=== PATIENT | female | born 1955 | race Caucasian/White ===

== ENCOUNTER 2020-06-28 00:41 | Emergency (ER) | payer MEDICARE, BC ==
[~2020-06-28] VITALS: Ht 162.6 cm; Wt 45.0 kg
[~2020-06-28 00:41] MED LIST: ACID1TAB7 PO; DICY10CA3 PO; MESA250C PO; OMEP-110 PO; PRED20TA PO
--- NOTE | 2020-06-28 01:26 | NUR ---
pt states she was admitted here for 2 weeks for chrons disease and discharged on 06/26 and has had increased pain since then. pt unable to recall medications prescribed but has been taking them daily. placed on monitors, awaiting erp eval
[2020-06-28] MEDS ORDERED: MORPHINE SULFATE 4 MG/ML, 1ML IVPush ONE ×2 (02:00→04:30)
[2020-06-28] MEDS ORDERED: ONDANSETRON 2MG/ML, 2ML IVPush ONE ×2 (02:00→04:30)
[2020-06-28] MEDS ORDERED: ONDANSETRON 2MG/ML, 2ML ONE ×2 (02:10→04:18)
[2020-06-28] MEDS ORDERED: MORPHINE SULFATE 4 MG/ML, 1ML ONE ×2 (02:10→04:18)
[2020-06-28 02:30] LABS: BASOPHILS % (AUTO) 1 % (0-1); EOSINOPHILS % (AUTO) 0 % (1-7); LYMPHOCYTES % (AUTO) 6 % (22-44); MEAN CORPUSCULAR HEMOGLOBIN 34.5 pg (27.0-34.8); MEAN CORPUSCULAR HGB CONC 34.7 g/dL (32.4-35.8); MEAN PLATELET VOLUME 7.3 fL (7.4-10.4); MONOCYTES % (AUTO) 4 % (2-9); NEUTROPHILS % (AUTO) 89 % (42-75); PLATELET COUNT 531 x10^3/uL (130-400); RED BLOOD COUNT 4.67 x10^6/uL (3.82-5.3); RED CELL DISTRIBUTION WIDTH 12.5 % (9.6-15.2)
[2020-06-28] MEDS ORDERED: SODIUM CHLORIDE 0.9% 1,000ML IVBOLUS ONE (02:30)
[2020-06-28] MEDS ORDERED: SODIUM CHLORIDE FLUSH 10ML SYR IVF ONE (02:30)
[2020-06-28 02:40] LABS: CALCIUM 9.5 mg/dL (8.5-10.1); CREATININE 1.09 mg/dL (0.55-1.02)
[2020-06-28 02:41] LABS: ALANINE AMINOTRANSFERASE 44 U/L (12-78); ALBUMIN 3.1 g/dL (3.4-5.0)
[2020-06-28 02:43] LABS: ALKALINE PHOSPHATASE 134 U/L (45-117); BILIRUBIN,TOTAL 0.8 mg/dL (0.2-1.0)
--- NOTE | 2020-06-28 02:43 | NUR ---
LABS DRAWN, PT MEDICATED FOR PAIN PER EMAR, PT JUST URINATED, UNABLE TO PROVIDE SAMPLE AT THIS TIME, IVF RUNNING, WILL REASSESS
[2020-06-28 02:50] LABS: ANION GAP 12 mmol/L (5-15); CHLORIDE 96 mmol/L (98-107)
[2020-06-28 02:58] LABS: MD SCAN
--- NOTE | 2020-06-28 03:02 | NUR ---
PT TO CT
[2020-06-28] MEDS ORDERED: OMNIPAQUE 350 MG/ML, 100ML BOTTLE ONE (03:18)
[2020-06-28 03:41] LABS: MICROSCOPIC INDICATED
[2020-06-28 04:25] VITALS: BP 103/56
== END 2020-06-28 04:55 | disposition home or self-care (01) ==
LOC: ED 04:30
DX: D72.829 Elevated white blood cell count, unspecified (principal); R10.84 Generalized abdominal pain; R11.2 Nausea with vomiting, unspecified
CPT/HCPCS: 36415; 74177; 80053; 81001; 83690; 85025; 96361; 96374; 96375; 96376; 99285; J2270; J2405; J7030; Q9967

== ENCOUNTER 2020-08-28 10:11 | Inpatient (IN) | payer MEDICARE, BC ==
[~2020-08-28] VITALS: Ht 162.6 cm; Wt 41.2 kg
[2020-08-28] MEDS ORDERED: ONDANSETRON 2MG/ML, 2ML IVPush ONE (10:30)
[2020-08-28] MEDS ORDERED: SODIUM CHLORIDE FLUSH 10ML SYR IVF ONE (10:30)
[2020-08-28] MEDS ORDERED: SODIUM CHLORIDE 0.9% 1,000ML IVBOLUS ONE (10:30)
[2020-08-28] MEDS ORDERED: MORPHINE SULFATE 4 MG/ML, 1ML ONE ×2 (10:38→11:26)
[2020-08-28] MEDS ORDERED: ONDANSETRON 2MG/ML, 2ML ONE (10:38)
[2020-08-28] MEDS: MORPHINE SULFATE 4 MG/ML, 1ML IVPush PRN ×2 (10:42→11:44)
[2020-08-28 10:52] LABS: MEAN CORPUSCULAR HEMOGLOBIN 31.1 pg (27.0-34.8); MEAN CORPUSCULAR HGB CONC 33.5 g/dL (32.4-35.8); MEAN PLATELET VOLUME 7.1 fL (7.4-10.4); PLATELET COUNT 496 x10^3/uL (130-400); RED BLOOD COUNT 5.01 x10^6/uL (3.82-5.3); RED CELL DISTRIBUTION WIDTH 13.6 % (9.6-15.2)
[2020-08-28 11:02] LABS: ANION GAP 9 mmol/L (5-15); CALCIUM 8.7 mg/dL (8.5-10.1); CHLORIDE 103 mmol/L (98-107)
[2020-08-28 11:06] LABS: ALANINE AMINOTRANSFERASE 13 U/L (12-78); ALKALINE PHOSPHATASE 73 U/L (45-117); BILIRUBIN,TOTAL 0.7 mg/dL (0.2-1.0); CREATININE 0.93 mg/dL (0.55-1.02); TOTAL PROTEIN 6.2 g/dL (6.4-8.2)
--- NOTE | 2020-08-28 11:27 | NUR ---
PT TO CT
[2020-08-28 11:36] LABS: <PLATELET ESTIMATE> INCREASED; <PLT MORPHOLOGY> NORMAL PLT MORPH; <RBC MORPHOLOGY> NORMAL; BANDS%(MANUAL) 5 % (0-7); LYMPHS% (MANUAL) 35 % (22-44); MONOS#(MANUAL) 0.24 x10^3/uL (0.3-2.7); MONOS% (MANUAL) 4 % (2-9); REACTIVE LYMPHS # (MANUAL) 0.42 x10^3/uL (0-0); REACTIVE LYMPHS % (MANUAL) 7 % (0-0); SEG#(MANUAL) 2.94 x10^3/uL (1.8-6.8); SEGS% (MANUAL) 49 % (42-75)
[2020-08-28] MEDS ORDERED: OMNIPAQUE 350 MG/ML, 100ML BOTTLE ONE (11:39)
[2020-08-28 11:40] LABS: MICROSCOPIC INDICATED
--- NOTE | 2020-08-28 11:44 | NUR ---
PT BACK FROM CT. ALL MONITORS IN PLACE. AT BS. CALL LIGHT WITHIN REACH. NADN/VSS
[2020-08-28] MEDS ORDERED: POTASSIUM CHLORIDE 40 MEQ in SODIUM CHLORIDE 0.9% 500 ML IV ONE (12:30)
[2020-08-28] MEDS ORDERED: CEFTRIAXONE 1,000 MG in DEXTROSE 5% 50 ML IVPB ONE (12:30)
--- NOTE | 2020-08-28 13:12 | NUR ---
REPORT GIVEN TO ANAND TEMPLE.
[2020-08-28 13:30] LABS: FREE T4 (FREE THYROXINE) 1.44 ng/dL (0.76-1.46)
[2020-08-28] MEDS ORDERED: ACETAMINOPHEN 325 MG TABLET PO PRN (14:30)
[2020-08-28] MEDS ORDERED: MAGNESIUM SULFATE PMX 2GM/50ML 50 ML IV ONE (14:30)
[2020-08-28] MEDS ORDERED: LACTATED RINGERS 1,000 ML IV SCH (14:30)
[2020-08-28] MEDS ORDERED: ONDANSETRON ODT 4 MG PO PRN (14:30)
[2020-08-28] MEDS ORDERED: ONDANSETRON 2MG/ML, 2ML IVPush PRN (14:30)
[2020-08-28] MEDS: morphine SULFATE 10 MG/ML, 1ML IVPush PRN ×2 (14:36→15:11)
[2020-08-28] MEDS: HYDROCORTISONE 100 MG INJ. IVPush SCH ×2 (15:24→23:17)
[2020-08-28 15:30] VITALS: BP 108/73
[2020-08-28] MEDS: HYDROcodone/APAP 5/325 TABLET PO PRN ×2 (16:17→16:52)
[2020-08-28] MEDS: NS + 40MEQ KCL 1,000 ML IV SCH (17:15)
[2020-08-28 17:18] VITALS: BP 108/73
[2020-08-28] MEDS ORDERED: PRED20TA PO (18:21)
[2020-08-28] MEDS ORDERED: OMEP40CA8 PO (18:21)
[2020-08-28] MEDS ORDERED: HYOS0.1282 PO (18:21)
[2020-08-28] MEDS: HYDROmorphone 2 MG/ML, 1ML IVPush PRN ×2 (19:19→23:25)
[2020-08-28 20:00] VITALS: BP 101/55
[2020-08-29] MEDS: NS + 40MEQ KCL 1,000 ML IV SCH (01:19)
[2020-08-29 01:51] VITALS: BP 104/60
[2020-08-29] MEDS: OMEPRAZOLE 20 MG CAPSULE.DR PO SCH ×2 (05:39→08:43)
[2020-08-29] MEDS: HYDROmorphone 2 MG/ML, 1ML IVPush PRN ×6 (05:44→19:36)
[2020-08-29 06:28] LABS: ALBUMIN 1.6 g/dL (3.4-5.0); CALCIUM 7.8 mg/dL (8.5-10.1); CHLORIDE 111 mmol/L (98-107)
[2020-08-29 06:35] LABS: BASOPHILS % (AUTO) 0 % (0-1); EOSINOPHILS % (AUTO) 0 % (1-7); LYMPHOCYTES % (AUTO) 21 % (22-44); MEAN CORPUSCULAR HEMOGLOBIN 31.1 pg (27.0-34.8); MEAN CORPUSCULAR HGB CONC 33.5 g/dL (32.4-35.8); MEAN PLATELET VOLUME 7.2 fL (7.4-10.4); MONOCYTES % (AUTO) 4 % (2-9); NEUTROPHILS % (AUTO) 75 % (42-75); PLATELET COUNT 333 x10^3/uL (130-400); RED BLOOD COUNT 4.06 x10^6/uL (3.82-5.3); RED CELL DISTRIBUTION WIDTH 14.1 % (9.6-15.2)
[2020-08-29 06:41] LABS: ALANINE AMINOTRANSFERASE 9 U/L (12-78); ALKALINE PHOSPHATASE 67 U/L (45-117); ANION GAP 7 mmol/L (5-15); BILIRUBIN,TOTAL 0.4 mg/dL (0.2-1.0); PREALBUMIN 9.5 mg/dL (20.0-40.0); TOTAL PROTEIN 5.3 g/dL (6.4-8.2)
[2020-08-29 06:42] LABS: HCT (SEDRATE) 37.6 % (34.6-47.8)
[2020-08-29 06:43] LABS: C-REACTIVE PROTEIN, QUANT > 19.00 mg/dL (0.02-0.49)
[2020-08-29 07:39] VITALS: BP 118/75
[2020-08-29] MEDS: HYDROCORTISONE 100 MG INJ. IVPush SCH ×3 (08:53→23:30)
[2020-08-29] MEDS ORDERED: OMNIPAQUE 350 MG/ML, 100ML BOTTLE ONE (11:27)
[2020-08-29] MEDS ORDERED: CHLORHEXIDINE 15 ML UDC ONE (13:48)
[2020-08-29] MEDS ORDERED: CHLORHEXIDINE 15 ML UDC PO ONE (14:00)
[2020-08-29] MEDS ORDERED: FENTANYL PF 100 MCG/2ML ONE ×2 (14:23→15:36)
[2020-08-29] MEDS ORDERED: CEFAZOLIN 1,000 MG ONE (14:25)
[2020-08-29] MEDS ORDERED: GLYCOPYRROLATE 0.2MG/1ML, 5ML ONE (14:25)
[2020-08-29] MEDS ORDERED: SUCCINYLCHOLINE 20 MG/ML, 10ML ONE (14:25)
[2020-08-29] MEDS ORDERED: ROCURONIUM 10MG/ML,5ML ONE (14:25)
[2020-08-29] MEDS ORDERED: NEOSTIGMINE 1 MG/ML, 10ML ONE (14:25)
[2020-08-29] MEDS ORDERED: PROPOFOL 10 MG/ML, 20ML ONE (14:25)
[2020-08-29] MEDS ORDERED: ONDANSETRON 2MG/ML, 2ML ONE (14:25)
[2020-08-29] MEDS ORDERED: ACETAMINOPHEN 325 MG TABLET PO PRN (15:00)
[2020-08-29] MEDS ORDERED: PROMETHAZINE 25 MG/ML, 1ML IVPush PRN (15:00)
[2020-08-29] MEDS ORDERED: LORazepam 2 MG/ML, 1ML IVPush PRN (15:00)
[2020-08-29] MEDS ORDERED: ONDANSETRON 2MG/ML, 2ML IVPush PRN (15:00)
[2020-08-29] MEDS ORDERED: EPHEDRINE 50 MG/ML, 1ML IM PRN (15:00)
[2020-08-29] MEDS ORDERED: hydrALAzine 20 MG/ML, 1ML IV PRN (15:00)
[2020-08-29] MEDS ORDERED: OXYcodone 5 MG/5 ML ORAL.SOL UDC PO PRN (15:00)
[2020-08-29] MEDS ORDERED: LABETALOL 5MG/ML, 20ML IV PRN (15:00)
[2020-08-29] MEDS ORDERED: METHOCARBAMOL 1,000 MG in DEXTROSE 5% 100 ML IV PRN (15:00)
[2020-08-29] MEDS ORDERED: HYDROmorphone 1 MG/ML, 1ML INJ IVPush PRN (15:00)
[2020-08-29] MEDS: FENTANYL PF 100 MCG/2ML IV PRN ×2 (15:38→15:45)
[2020-08-29] MEDS ORDERED: OXYcodone 5 MG/5 ML ORAL.SOL UDC ONE (15:42)
[2020-08-29 16:00] VITALS: BP 110/75
[2020-08-29] MEDS: D5%-0.45NACL+KCL 20MEQ 1,000 ML IV SCH (16:21)
[2020-08-29 18:25] VITALS: BP 148/62
[2020-08-30 00:14] VITALS: BP 145/75
[2020-08-30] MEDS: D5%-0.45NACL+KCL 20MEQ 1,000 ML IV SCH ×2 (00:24→09:26)
[2020-08-30] MEDS: HYDROmorphone 2 MG/ML, 1ML IVPush PRN ×4 (06:08→20:37)
[2020-08-30 06:12] LABS: CHLORIDE 112 mmol/L (98-107)
[2020-08-30 06:19] LABS: ANION GAP 4 mmol/L (5-15); CALCIUM 7.8 mg/dL (8.5-10.1); CREATININE 0.36 mg/dL (0.55-1.02)
[2020-08-30] MEDS ORDERED: TPN PER PHARMACY MC PRN (07:00)
[2020-08-30 07:22] VITALS: BP 159/79
[2020-08-30] MEDS: methylPREDNISolone SOD SUCC 40 MG/ML IV SCH ×2 (09:26→20:36)
[2020-08-30 12:25] VITALS: BP 153/78
[2020-08-30] MEDS: D5%-0.45% NACL 1,000 ML IV SCH (16:39)
[2020-08-30] MEDS ORDERED: FAT EMUL IV SCH (17:00)
[2020-08-30] MEDS ORDERED: [UNRECOGNIZED DRUG - OTHER] IV SCH (17:00)
[2020-08-30] MEDS ORDERED: DEXTROSE 70% IV SCH (17:00)
[2020-08-30] MEDS ORDERED: FILTER, DISP 1.2 MICRON FOR TPN/PVN IV PRN (17:00)
[2020-08-30] MEDS ORDERED: DEXTROSE 50%, 50ML SYRINGE IVPush PRN (17:00)
[2020-08-30] MEDS ORDERED: AMINO ACID 10% IV SCH (17:00)
[2020-08-30] MEDS ORDERED: DEXTROSE 10% 500 ML IV PRN (17:00)
[2020-08-30] MEDS ORDERED: SMOF TPN IV SCH (17:00)
[2020-08-30 20:00] VITALS: BP 170/84
[2020-08-30] MEDS: INSULIN REGULAR MEDIUM DOSE Q6H X 48HRS SQ-INSULIN SCH (20:37)
[2020-08-31] MEDS: HYDROmorphone 2 MG/ML, 1ML IVPush PRN ×6 (00:51→18:23)
[2020-08-31 01:05] VITALS: BP 159/99
[2020-08-31] MEDS: INSULIN REGULAR MEDIUM DOSE Q6H X 48HRS SQ-INSULIN SCH ×4 (02:59→21:20)
[2020-08-31] MEDS: OMEPRAZOLE 20 MG CAPSULE.DR PO SCH (05:21)
[2020-08-31 06:09] LABS: CHLORIDE 105 mmol/L (98-107)
[2020-08-31 06:13] LABS: BASOPHILS % (AUTO) 0 % (0-1); EOSINOPHILS % (AUTO) 0 % (1-7); LYMPHOCYTES % (AUTO) 24 % (22-44); MEAN CORPUSCULAR HEMOGLOBIN 30.8 pg (27.0-34.8); MEAN CORPUSCULAR HGB CONC 33.2 g/dL (32.4-35.8); MONOCYTES % (AUTO) 11 % (2-9); NEUTROPHILS % (AUTO) 65 % (42-75); PLATELET COUNT 258 x10^3/uL (130-400); RED BLOOD COUNT 3.71 x10^6/uL (3.82-5.3); RED CELL DISTRIBUTION WIDTH 13.6 % (9.6-15.2)
[2020-08-31 06:19] LABS: ALANINE AMINOTRANSFERASE 13 U/L (12-78); ALBUMIN 1.6 g/dL (3.4-5.0); ALKALINE PHOSPHATASE 68 U/L (45-117); ANION GAP 4 mmol/L (5-15); BILIRUBIN,TOTAL 0.3 mg/dL (0.2-1.0); CREATININE 0.42 mg/dL (0.55-1.02); TOTAL PROTEIN 5.1 g/dL (6.4-8.2); TRIGLYCERIDES 104 mg/dL (50-200)
[2020-08-31 07:54] VITALS: BP 163/80
[2020-08-31] MEDS: methylPREDNISolone SOD SUCC 40 MG/ML IV SCH ×2 (08:41→21:08)
[2020-08-31 12:00] VITALS: BP 131/77
[2020-08-31] MEDS ORDERED: [UNRECOGNIZED DRUG - OTHER] IV SCH (17:00)
[2020-08-31] MEDS ORDERED: FAT EMUL IV SCH (17:00)
[2020-08-31] MEDS ORDERED: FILTER, DISP 1.2 MICRON FOR TPN/PVN IV PRN (17:00)
[2020-08-31] MEDS ORDERED: DEXTROSE 70% IV SCH (17:00)
[2020-08-31] MEDS ORDERED: AMINO ACID 10% IV SCH (17:00)
[2020-08-31] MEDS ORDERED: SMOF TPN IV SCH (17:00)
[2020-08-31] MEDS: D5%-0.45% NACL 1,000 ML IV SCH (17:43)
[2020-08-31 19:26] VITALS: BP 147/79
[2020-08-31] MEDS: PANTOPRAZOLE 40 MG IV IVPush SCH (21:07)
[2020-09-01] VITALS: BP 163/82
[2020-09-01] MEDS: INSULIN REGULAR MEDIUM DOSE Q6H X 48HRS SQ-INSULIN SCH ×3 (02:05→15:00)
[2020-09-01] MEDS: HYDROmorphone 2 MG/ML, 1ML IVPush PRN ×6 (02:34→21:36)
[2020-09-01 04:50] LABS: CALCIUM 8.1 mg/dL (8.5-10.1); CHLORIDE 105 mmol/L (98-107)
[2020-09-01 05:08] LABS: ANION GAP 3 mmol/L (5-15)
[2020-09-01 06:48] VITALS: BP 137/82
[2020-09-01] MEDS: methylPREDNISolone SOD SUCC 40 MG/ML IV SCH ×2 (08:51→22:09)
[2020-09-01] MEDS: PANTOPRAZOLE 40 MG IV IVPush SCH ×2 (08:51→22:09)
[2020-09-01 12:29] VITALS: BP 112/74
[2020-09-01 14:15] LABS: MICROSCOPIC NOT IND
[2020-09-01] MEDS: SENNA/DOCUSATE TABLET PO PRN (15:36)
[2020-09-01] MEDS: FILTER, DISP 1.2 MICRON FOR TPN/PVN IV PRN (16:28)
[2020-09-01] MEDS ORDERED: [UNRECOGNIZED DRUG - OTHER] IV SCH (17:00)
[2020-09-01] MEDS ORDERED: AMINO ACID 10% IV SCH (17:00)
[2020-09-01] MEDS ORDERED: FAT EMUL IV SCH (17:00)
[2020-09-01] MEDS ORDERED: DEXTROSE 70% IV SCH (17:00)
[2020-09-01] MEDS ORDERED: SMOF TPN IV SCH (17:00)
[2020-09-01] MEDS: POLYETHYLENE GLYCOL 17 GM PACKET PO PRN (18:04)
[2020-09-01 20:31] VITALS: BP 144/79
[2020-09-01] MEDS: D5%-0.45% NACL 1,000 ML IV SCH (21:41)
[2020-09-01] MEDS: OXYcodone/APAP 5/325MG TABLET PO PRN ×2 (22:46→22:49)
[2020-09-01] MEDS: NICOTINE 21 MG/24 HR PATCH.TD24 TD SCH (22:49)
[2020-09-02] VITALS (7 sets, daily range): BP systolic 121–174; BP diastolic 68–85
[2020-09-02] MEDS: HYDROmorphone 2 MG/ML, 1ML IVPush PRN ×6 (00:42→21:02)
[2020-09-02] MEDS: OXYcodone/APAP 5/325MG TABLET PO PRN ×3 (03:06→17:57)
[2020-09-02 05:27] LABS: ANION GAP 3 mmol/L (5-15); CALCIUM 8.2 mg/dL (8.5-10.1); CHLORIDE 104 mmol/L (98-107); CREATININE 0.46 mg/dL (0.55-1.02)
[2020-09-02] MEDS: methylPREDNISolone SOD SUCC 40 MG/ML IV SCH ×2 (08:55→21:01)
[2020-09-02] MEDS: PANTOPRAZOLE 40 MG IV IVPush SCH ×2 (08:55→21:01)
[2020-09-02] MEDS: INSULIN REGULAR MEDIUM DOSE QDAY SQ-INSULIN SCH (09:15)
[2020-09-02] MEDS: POLYETHYLENE GLYCOL 17 GM PACKET PO PRN (12:30)
[2020-09-02] MEDS: SENNA/DOCUSATE TABLET PO PRN (15:58)
[2020-09-02] MEDS ORDERED: [UNRECOGNIZED DRUG - OTHER] IV SCH (17:00)
[2020-09-02] MEDS ORDERED: DEXTROSE 70% IV SCH (17:00)
[2020-09-02] MEDS ORDERED: AMINO ACID 10% IV SCH (17:00)
[2020-09-02] MEDS ORDERED: FAT EMUL IV SCH (17:00)
[2020-09-02] MEDS ORDERED: SMOF TPN IV SCH (17:00)
[2020-09-02] MEDS: FILTER, DISP 1.2 MICRON FOR TPN/PVN IV PRN (17:38)
[2020-09-02] MEDS: D5%-0.45% NACL 1,000 ML IV SCH (17:49)
[2020-09-02] MEDS: AMLODIPINE 2.5 MG TABLET PO SCH (21:02)
[2020-09-02] MEDS: NICOTINE 21 MG/24 HR PATCH.TD24 TD SCH (22:30)
[2020-09-03 00:22] VITALS: BP 153/72
[2020-09-03] MEDS: HYDROmorphone 2 MG/ML, 1ML IVPush PRN ×3 (05:44→15:23)
[2020-09-03 06:06] LABS: BASOPHILS % (AUTO) 0 % (0-1); EOSINOPHILS % (AUTO) 0 % (1-7); LYMPHOCYTES % (AUTO) 14 % (22-44); MEAN CORPUSCULAR HEMOGLOBIN 30.7 pg (27.0-34.8); MEAN CORPUSCULAR HGB CONC 33.2 g/dL (32.4-35.8); MONOCYTES % (AUTO) 13 % (2-9); NEUTROPHILS % (AUTO) 73 % (42-75); PLATELET COUNT 199 x10^3/uL (130-400); RED BLOOD COUNT 3.43 x10^6/uL (3.82-5.3); RED CELL DISTRIBUTION WIDTH 13.9 % (9.6-15.2)
[2020-09-03 06:08] LABS: HCT (SEDRATE) 30.8 % (34.6-47.8)
[2020-09-03 06:20] LABS: ANION GAP 4 mmol/L (5-15); CALCIUM 8.8 mg/dL (8.5-10.1); CHLORIDE 106 mmol/L (98-107)
[2020-09-03 06:27] LABS: CREATININE 0.43 mg/dL (0.55-1.02)
[2020-09-03 07:36] VITALS: BP 160/87
[2020-09-03] MEDS: AMLODIPINE 2.5 MG TABLET PO SCH ×2 (09:09→21:10)
[2020-09-03] MEDS: methylPREDNISolone SOD SUCC 40 MG/ML IV SCH ×2 (09:10→21:10)
[2020-09-03] MEDS: PANTOPRAZOLE 40 MG IV IVPush SCH ×2 (09:10→21:11)
[2020-09-03] MEDS: OXYcodone/APAP 5/325MG TABLET PO PRN ×2 (09:10→17:48)
[2020-09-03] MEDS: INSULIN REGULAR MEDIUM DOSE QDAY SQ-INSULIN SCH (09:21)
[2020-09-03 12:14] VITALS: BP 168/87
[2020-09-03] MEDS ORDERED: [UNRECOGNIZED DRUG - OTHER] IV SCH (17:00)
[2020-09-03] MEDS ORDERED: SMOF TPN IV SCH ×2 (17:00)
[2020-09-03] MEDS ORDERED: [UNRECOGNIZED DRUG - OTHER] IV SCH (17:00)
[2020-09-03] MEDS ORDERED: AMINO ACID 10% IV SCH ×2 (17:00)
[2020-09-03] MEDS ORDERED: FAT EMUL IV SCH ×2 (17:00)
[2020-09-03] MEDS ORDERED: DEXTROSE 70% IV SCH ×2 (17:00)
[2020-09-03] MEDS: D5%-0.45% NACL 1,000 ML IV SCH (17:58)
[2020-09-03 22:12] VITALS: BP 168/91
[2020-09-03] MEDS: NICOTINE 21 MG/24 HR PATCH.TD24 TD SCH (22:37)
[2020-09-04 00:53] VITALS: BP 142/72
[2020-09-04] MEDS: HYDROmorphone 2 MG/ML, 1ML IVPush PRN ×3 (04:44→20:34)
[2020-09-04 05:53] LABS: CHLORIDE 106 mmol/L (98-107)
[2020-09-04 06:03] LABS: ANION GAP 5 mmol/L (5-15); CALCIUM 8.5 mg/dL (8.5-10.1); CREATININE 0.38 mg/dL (0.55-1.02); PREALBUMIN 21.4 mg/dL (20.0-40.0)
[2020-09-04 06:39] VITALS: BP 147/84
[2020-09-04] MEDS: AMLODIPINE 2.5 MG TABLET PO SCH ×2 (08:08→20:33)
[2020-09-04] MEDS: OXYcodone/APAP 5/325MG TABLET PO PRN ×2 (08:08→16:10)
[2020-09-04] MEDS: methylPREDNISolone SOD SUCC 40 MG/ML IV SCH ×2 (08:08→20:34)
[2020-09-04] MEDS: PANTOPRAZOLE 40 MG IV IVPush SCH ×2 (08:09→20:34)
[2020-09-04] MEDS: INSULIN REGULAR MEDIUM DOSE QDAY SQ-INSULIN SCH (10:16)
[2020-09-04 12:13] VITALS: BP 147/77
[2020-09-04] MEDS: D5%-0.45% NACL 1,000 ML IV SCH (16:13)
[2020-09-04] MEDS ORDERED: AMINO ACID 10% IV SCH (17:00)
[2020-09-04] MEDS ORDERED: FAT EMUL IV SCH (17:00)
[2020-09-04] MEDS ORDERED: SMOF TPN IV SCH (17:00)
[2020-09-04] MEDS ORDERED: [UNRECOGNIZED DRUG - OTHER] IV SCH (17:00)
[2020-09-04] MEDS ORDERED: DEXTROSE 70% IV SCH (17:00)
[2020-09-04 19:12] VITALS: BP 143/71
[2020-09-04] MEDS: NICOTINE 21 MG/24 HR PATCH.TD24 TD SCH (22:47)
[2020-09-05 03:55] VITALS: BP 124/66
[2020-09-05] MEDS: HYDROmorphone 2 MG/ML, 1ML IVPush PRN ×3 (05:34→17:23)
[2020-09-05 05:48] LABS: ANION GAP 3 mmol/L (5-15); CHLORIDE 105 mmol/L (98-107)
[2020-09-05 05:54] LABS: CREATININE 0.38 mg/dL (0.55-1.02); PREALBUMIN 26.1 mg/dL (20.0-40.0)
[2020-09-05 07:51] VITALS: BP 157/80
[2020-09-05] MEDS: AMLODIPINE 2.5 MG TABLET PO SCH ×2 (08:58→20:39)
[2020-09-05] MEDS: PANTOPRAZOLE 40 MG IV IVPush SCH ×2 (08:58→20:38)
[2020-09-05] MEDS: methylPREDNISolone SOD SUCC 40 MG/ML IV SCH ×2 (08:58→20:38)
[2020-09-05] MEDS: INSULIN REGULAR MEDIUM DOSE QDAY SQ-INSULIN SCH (09:00)
[2020-09-05] MEDS: SUCRALFATE 1 GM TABLET PO SCH ×3 (12:01→20:39)
[2020-09-05 12:04] VITALS: BP 136/75
[2020-09-05] MEDS: OXYcodone/APAP 5/325MG TABLET PO PRN (12:13)
[2020-09-05] MEDS ORDERED: FAT EMUL IV SCH (17:00)
[2020-09-05] MEDS ORDERED: [UNRECOGNIZED DRUG - OTHER] IV SCH (17:00)
[2020-09-05] MEDS ORDERED: SMOF TPN IV SCH (17:00)
[2020-09-05] MEDS ORDERED: DEXTROSE 70% IV SCH (17:00)
[2020-09-05] MEDS ORDERED: AMINO ACID 10% IV SCH (17:00)
[2020-09-05] MEDS: FILTER, DISP 1.2 MICRON FOR TPN/PVN IV PRN (17:11)
[2020-09-05] MEDS: D5%-0.45% NACL 1,000 ML IV SCH (17:42)
[2020-09-05 18:21] VITALS: BP 145/79
[2020-09-05 20:40] VITALS: BP 159/73
[2020-09-05] MEDS: NICOTINE 21 MG/24 HR PATCH.TD24 TD SCH (22:16)
[2020-09-06 03:19] VITALS: BP 138/84
[2020-09-06 03:59] LABS: ANION GAP 5 mmol/L (5-15); CALCIUM 8.5 mg/dL (8.5-10.1); CHLORIDE 107 mmol/L (98-107); CREATININE 0.41 mg/dL (0.55-1.02)
[2020-09-06] MEDS: SUCRALFATE 1 GM TABLET PO SCH ×4 (05:19→20:27)
[2020-09-06 06:47] VITALS: BP 131/64
[2020-09-06] MEDS: INSULIN REGULAR MEDIUM DOSE QDAY SQ-INSULIN SCH (08:21)
[2020-09-06] MEDS: HYDROmorphone 2 MG/ML, 1ML IVPush PRN ×3 (10:55→20:27)
[2020-09-06] MEDS: AMLODIPINE 2.5 MG TABLET PO SCH ×2 (10:55→20:27)
[2020-09-06] MEDS: PANTOPRAZOLE 40 MG IV IVPush SCH ×2 (10:56→20:27)
[2020-09-06] MEDS: methylPREDNISolone SOD SUCC 40 MG/ML IV SCH ×2 (10:56→20:27)
[2020-09-06] MEDS: OXYcodone/APAP 5/325MG TABLET PO PRN (13:41)
[2020-09-06 13:49] VITALS: BP 121/70
[2020-09-06] MEDS ORDERED: DEXTROSE 70% IV SCH ×2 (17:00)
[2020-09-06] MEDS ORDERED: [UNRECOGNIZED DRUG - OTHER] IV SCH (17:00)
[2020-09-06] MEDS ORDERED: SMOF TPN IV SCH ×2 (17:00)
[2020-09-06] MEDS ORDERED: FAT EMUL IV SCH ×2 (17:00)
[2020-09-06] MEDS ORDERED: [UNRECOGNIZED DRUG - OTHER] IV SCH (17:00)
[2020-09-06] MEDS ORDERED: AMINO ACID 10% IV SCH ×2 (17:00)
[2020-09-06 19:00] VITALS: BP 96/65
[2020-09-06 20:25] VITALS: BP 145/78
[2020-09-06] MEDS: D5%-0.45% NACL 1,000 ML IV SCH (21:51)
[2020-09-06] MEDS: NICOTINE 21 MG/24 HR PATCH.TD24 TD SCH (21:52)
[2020-09-07 02:37] VITALS: BP 125/72
[2020-09-07 03:01] LABS: HCT (SEDRATE) 31.2 % (34.6-47.8)
[2020-09-07 03:15] LABS: ALANINE AMINOTRANSFERASE 88 U/L (12-78); ALBUMIN 1.7 g/dL (3.4-5.0); ANION GAP 4 mmol/L (5-15); CHLORIDE 105 mmol/L (98-107); CREATININE 0.39 mg/dL (0.55-1.02)
[2020-09-07 03:22] LABS: ALKALINE PHOSPHATASE 120 U/L (45-117); BILIRUBIN,TOTAL 0.4 mg/dL (0.2-1.0)
[2020-09-07] MEDS: HYDROmorphone 2 MG/ML, 1ML IVPush PRN ×3 (05:36→20:14)
[2020-09-07 06:52] VITALS: BP 126/68
[2020-09-07] MEDS: PANTOPRAZOLE 40 MG IV IVPush SCH ×2 (08:49→20:14)
[2020-09-07] MEDS: SUCRALFATE 1 GM TABLET PO SCH ×4 (08:49→20:14)
[2020-09-07] MEDS: AMLODIPINE 2.5 MG TABLET PO SCH ×2 (08:49→20:14)
[2020-09-07] MEDS: methylPREDNISolone SOD SUCC 40 MG/ML IV SCH ×2 (08:49→20:14)
[2020-09-07] MEDS: INSULIN REGULAR MEDIUM DOSE QDAY SQ-INSULIN SCH (08:53)
[2020-09-07] MEDS: OXYcodone/APAP 5/325MG TABLET PO PRN ×2 (08:57→16:26)
[2020-09-07 13:08] VITALS: BP 103/55
[2020-09-07] MEDS ORDERED: AMINO ACID 10% IV SCH (17:00)
[2020-09-07] MEDS ORDERED: SMOF TPN IV SCH (17:00)
[2020-09-07] MEDS ORDERED: DEXTROSE 70% IV SCH (17:00)
[2020-09-07] MEDS ORDERED: FAT EMUL IV SCH (17:00)
[2020-09-07] MEDS ORDERED: [UNRECOGNIZED DRUG - OTHER] IV SCH (17:00)
[2020-09-07 18:53] VITALS: BP 133/80
[2020-09-07] MEDS: NICOTINE 21 MG/24 HR PATCH.TD24 TD SCH (20:25)
[2020-09-08 00:36] VITALS: BP 156/80
[2020-09-08] MEDS: HYDROmorphone 2 MG/ML, 1ML IVPush PRN ×3 (04:47→21:33)
[2020-09-08 06:18] LABS: ANION GAP 5 mmol/L (5-15); CALCIUM 8.5 mg/dL (8.5-10.1); CHLORIDE 103 mmol/L (98-107); CREATININE 0.43 mg/dL (0.55-1.02)
[2020-09-08] MEDS: D5%-0.45% NACL 1,000 ML IV SCH ×2 (06:33→22:17)
[2020-09-08 06:44] VITALS: BP 120/61
[2020-09-08] MEDS: SUCRALFATE 1 GM TABLET PO SCH ×4 (08:13→21:33)
[2020-09-08] MEDS: AMLODIPINE 2.5 MG TABLET PO SCH ×2 (08:14→21:35)
[2020-09-08] MEDS: OXYcodone/APAP 5/325MG TABLET PO PRN ×2 (08:14→16:36)
[2020-09-08] MEDS: methylPREDNISolone SOD SUCC 40 MG/ML IV SCH ×2 (08:14→21:33)
[2020-09-08] MEDS: PANTOPRAZOLE 40 MG IV IVPush SCH ×2 (08:14→21:33)
[2020-09-08] MEDS: INSULIN REGULAR MEDIUM DOSE QDAY SQ-INSULIN SCH (08:15)
[2020-09-08 13:42] VITALS: BP 130/77
[2020-09-08] MEDS ORDERED: [UNRECOGNIZED DRUG - OTHER] IV SCH (17:00)
[2020-09-08] MEDS ORDERED: FAT EMUL IV SCH (17:00)
[2020-09-08] MEDS ORDERED: AMINO ACID 10% IV SCH (17:00)
[2020-09-08] MEDS ORDERED: DEXTROSE 70% IV SCH (17:00)
[2020-09-08] MEDS ORDERED: SMOF TPN IV SCH (17:00)
[2020-09-08 19:00] VITALS: BP 119/65
[2020-09-08] MEDS: NICOTINE 21 MG/24 HR PATCH.TD24 TD SCH (21:40)
[2020-09-09 00:33] VITALS: BP 111/62
[2020-09-09] MEDS: HYDROmorphone 2 MG/ML, 1ML IVPush PRN ×4 (02:22→19:39)
[2020-09-09 06:01] LABS: HCT (SEDRATE) 34.1 % (34.6-47.8)
[2020-09-09] MEDS: OXYcodone/APAP 5/325MG TABLET PO PRN ×3 (06:01→16:16)
[2020-09-09 06:14] LABS: ANION GAP 6 mmol/L (5-15); CALCIUM 8.5 mg/dL (8.5-10.1); CHLORIDE 100 mmol/L (98-107)
[2020-09-09 06:23] LABS: CREATININE 0.43 mg/dL (0.55-1.02)
[2020-09-09 06:30] VITALS: BP 116/60
[2020-09-09] MEDS: SUCRALFATE 1 GM TABLET PO SCH ×4 (08:18→20:35)
[2020-09-09] MEDS: AMLODIPINE 2.5 MG TABLET PO SCH ×2 (08:18→20:34)
[2020-09-09] MEDS: PANTOPRAZOLE 40 MG IV IVPush SCH (08:18)
[2020-09-09] MEDS: methylPREDNISolone SOD SUCC 40 MG/ML IV SCH (08:26)
[2020-09-09] MEDS: INSULIN REGULAR MEDIUM DOSE QDAY SQ-INSULIN SCH (08:32)
[2020-09-09 13:41] VITALS: BP 118/73
[2020-09-09] MEDS ORDERED: FAMOTIDINE 10 MG TAB PO ONE (15:00)
[2020-09-09] MEDS: FILTER, DISP 1.2 MICRON FOR TPN/PVN IV PRN (16:16)
[2020-09-09] MEDS ORDERED: [UNRECOGNIZED DRUG - OTHER] IV SCH (17:00)
[2020-09-09] MEDS ORDERED: AMINO ACID 10% IV SCH (17:00)
[2020-09-09] MEDS ORDERED: SMOF TPN IV SCH (17:00)
[2020-09-09] MEDS ORDERED: DEXTROSE 70% IV SCH (17:00)
[2020-09-09] MEDS ORDERED: FAT EMUL IV SCH (17:00)
[2020-09-09 18:48] VITALS: BP 102/67
[2020-09-09] MEDS: POLYETHYLENE GLYCOL 17 GM PACKET PO PRN (20:38)
[2020-09-09] MEDS: NICOTINE 21 MG/24 HR PATCH.TD24 TD SCH (20:38)
[2020-09-09 20:42] VITALS: BP 114/85
[2020-09-09] MEDS ORDERED: TRAZODONE 50MG TABLET PO PRN (21:00)
[2020-09-10 01:00] VITALS: BP 125/63
[2020-09-10] MEDS: OXYcodone/APAP 5/325MG TABLET PO PRN ×5 (01:48→23:59)
[2020-09-10] MEDS: HYDROmorphone 2 MG/ML, 1ML IVPush PRN ×6 (03:00→21:15)
[2020-09-10 06:21] LABS: CHLORIDE 101 mmol/L (98-107)
[2020-09-10 06:25] LABS: ANION GAP 5 mmol/L (5-15); CALCIUM 8.3 mg/dL (8.5-10.1); CREATININE 0.51 mg/dL (0.55-1.02)
[2020-09-10 07:02] VITALS: BP 101/49
[2020-09-10] MEDS ORDERED: PANTOPRAZOLE 40 MG IV IVPush SCH (07:30)
[2020-09-10] MEDS ORDERED: FAMOTIDINE 10 MG TAB PO SCH (07:30)
[2020-09-10] MEDS: SUCRALFATE 1 GM TABLET PO SCH ×4 (07:43→20:11)
[2020-09-10] MEDS: AMLODIPINE 2.5 MG TABLET PO SCH ×3 (07:43→20:09)
[2020-09-10] MEDS: INSULIN REGULAR MEDIUM DOSE QDAY SQ-INSULIN SCH (09:00)
[2020-09-10 13:34] VITALS: BP 98/61
[2020-09-10] MEDS: FILTER, DISP 1.2 MICRON FOR TPN/PVN IV PRN (16:16)
[2020-09-10] MEDS ORDERED: AMINO ACID 10% IV SCH (17:00)
[2020-09-10] MEDS ORDERED: SMOF TPN IV SCH (17:00)
[2020-09-10] MEDS ORDERED: DEXTROSE 70% IV SCH (17:00)
[2020-09-10] MEDS ORDERED: [UNRECOGNIZED DRUG - OTHER] IV SCH (17:00)
[2020-09-10] MEDS ORDERED: FAT EMUL IV SCH (17:00)
[2020-09-10] MEDS: SENNA/DOCUSATE TABLET PO PRN (17:48)
[2020-09-10 18:53] VITALS: BP 111/68
[2020-09-10] MEDS: NICOTINE 21 MG/24 HR PATCH.TD24 TD SCH (22:03)
[2020-09-11] VITALS (12 sets, daily range): BP systolic 95–128; BP diastolic 55–84
[2020-09-11] MEDS: HYDROmorphone 2 MG/ML, 1ML IVPush PRN ×6 (04:00→23:13)
[2020-09-11] MEDS: OXYcodone/APAP 5/325MG TABLET PO PRN (04:58)
[2020-09-11] MEDS ORDERED: CATHFLO-ALTEPLASE 2 MG/2 ML CATHFLUSH ONE (05:00)
[2020-09-11 05:53] LABS: MEAN CORPUSCULAR HEMOGLOBIN 31.3 pg (27.0-34.8); MEAN CORPUSCULAR HGB CONC 34.3 g/dL (32.4-35.8); MEAN PLATELET VOLUME 7.2 fL (7.4-10.4); PLATELET COUNT 440 x10^3/uL (130-400); RED BLOOD COUNT 3.18 x10^6/uL (3.82-5.3); RED CELL DISTRIBUTION WIDTH 13.9 % (9.6-15.2)
[2020-09-11 06:04] LABS: ALANINE AMINOTRANSFERASE 81 U/L (12-78); ALBUMIN 1.5 g/dL (3.4-5.0); ANION GAP 6 mmol/L (5-15); CALCIUM 8.2 mg/dL (8.5-10.1); CHLORIDE 103 mmol/L (98-107)
[2020-09-11 06:09] LABS: ALKALINE PHOSPHATASE 176 U/L (45-117); BILIRUBIN,TOTAL 0.6 mg/dL (0.2-1.0); CREATININE 0.41 mg/dL (0.55-1.02); PREALBUMIN 15.1 mg/dL (20.0-40.0); TOTAL PROTEIN 5.8 g/dL (6.4-8.2); TRIGLYCERIDES 68 mg/dL (50-200)
[2020-09-11 06:33] LABS: BAND#(MANUAL) 2.76 x10^3/uL; BANDS%(MANUAL) 29 % (0-7); EOS% (MANUAL) 1 % (1-7); LYMPH#(MANUAL) 1.71 x10^3/uL (1-3.4); LYMPHS% (MANUAL) 18 % (22-44); MONOS#(MANUAL) 0.19 x10^3/uL (0.3-2.7); MONOS% (MANUAL) 2 % (2-9); SEG#(MANUAL) 4.75 x10^3/uL (1.8-6.8); SEGS% (MANUAL) 50 % (42-75)
[2020-09-11 06:34] LABS: <PLATELET ESTIMATE> INCREASED; <PLT MORPHOLOGY> NORMAL PLT MORPH; <RBC MORPHOLOGY> NORMAL; PMNS WITH VACUOLES 1+; TOXIC GRAN 1+
[2020-09-11] MEDS: SUCRALFATE 1 GM TABLET PO SCH ×4 (06:41→20:16)
[2020-09-11] MEDS: INSULIN REGULAR MEDIUM DOSE QDAY SQ-INSULIN SCH (07:24)
[2020-09-11] MEDS: AMLODIPINE 2.5 MG TABLET PO SCH ×2 (07:24→20:16)
[2020-09-11] MEDS: D5%-0.45% NACL 1,000 ML IV SCH (10:37)
--- NOTE | 2020-09-11 15:23 | NUR ---
MARTHA VICTORIA - Fall Risk Medications present and NOT receiving anticoagulants.
[2020-09-11] MEDS ORDERED: FAT EMUL IV SCH (17:00)
[2020-09-11] MEDS ORDERED: SMOF TPN IV SCH (17:00)
[2020-09-11] MEDS ORDERED: [UNRECOGNIZED DRUG - OTHER] IV SCH (17:00)
[2020-09-11] MEDS ORDERED: AMINO ACID 10% IV SCH (17:00)
[2020-09-11] MEDS ORDERED: DEXTROSE 70% IV SCH (17:00)
[2020-09-11] MEDS: FILTER, DISP 1.2 MICRON FOR TPN/PVN IV PRN (17:30)
[2020-09-11 18:25] LABS: MICROSCOPIC INDICATED
[2020-09-11] MEDS: MELATONIN 5 MG TABLET PO PRN (20:16)
[2020-09-11] MEDS: NICOTINE 21 MG/24 HR PATCH.TD24 TD SCH (21:58)
[2020-09-12 01:24] VITALS: BP 122/69
[2020-09-12] MEDS: D5%-0.45% NACL 1,000 ML IV SCH ×2 (01:56→16:42)
[2020-09-12 06:02] LABS: ALBUMIN 1.3 g/dL (3.4-5.0); CHLORIDE 102 mmol/L (98-107)
[2020-09-12 06:07] LABS: ALANINE AMINOTRANSFERASE 68 U/L (12-78); ALKALINE PHOSPHATASE 249 U/L (45-117); ANION GAP 7 mmol/L (5-15); BILIRUBIN,TOTAL 0.7 mg/dL (0.2-1.0); TOTAL PROTEIN 5.6 g/dL (6.4-8.2); TRIGLYCERIDES 62 mg/dL (50-200)
[2020-09-12] MEDS: SUCRALFATE 1 GM TABLET PO SCH ×4 (06:20→20:38)
[2020-09-12 07:10] VITALS: BP 93/56
[2020-09-12] MEDS: SENNA/DOCUSATE TABLET PO PRN (09:11)
[2020-09-12] MEDS: POLYETHYLENE GLYCOL 17 GM PACKET PO PRN (09:11)
[2020-09-12] MEDS: OXYcodone/APAP 5/325MG TABLET PO PRN ×2 (09:12→14:42)
[2020-09-12 09:13] VITALS: BP 102/62
[2020-09-12] MEDS: HYDROmorphone 2 MG/ML, 1ML IVPush PRN ×4 (10:34→20:38)
[2020-09-12] MEDS: methylPREDNISolone SOD SUCC 40 MG/ML IV SCH ×2 (11:50→20:38)
[2020-09-12 12:03] VITALS: BP 102/66
[2020-09-12] MEDS ORDERED: AMINO ACID 10% IV SCH (17:00)
[2020-09-12] MEDS ORDERED: FAT EMUL IV SCH (17:00)
[2020-09-12] MEDS ORDERED: DEXTROSE 70% IV SCH (17:00)
[2020-09-12] MEDS ORDERED: SMOF TPN IV SCH (17:00)
[2020-09-12] MEDS ORDERED: [UNRECOGNIZED DRUG - OTHER] IV SCH (17:00)
[2020-09-12] MEDS: MELATONIN 5 MG TABLET PO PRN (20:38)
[2020-09-12 20:51] VITALS: BP 134/69
[2020-09-12] MEDS: NICOTINE 21 MG/24 HR PATCH.TD24 TD SCH (22:00)
[2020-09-13 01:38] VITALS: BP 160/75
[2020-09-13] MEDS: HYDROmorphone 2 MG/ML, 1ML IVPush PRN ×4 (01:45→20:18)
[2020-09-13] MEDS: OXYcodone/APAP 5/325MG TABLET PO PRN ×2 (05:31→12:13)
[2020-09-13] MEDS: SUCRALFATE 1 GM TABLET PO SCH ×4 (06:01→20:39)
[2020-09-13 06:09] LABS: ANION GAP 5 mmol/L (5-15); CALCIUM 8.2 mg/dL (8.5-10.1); CHLORIDE 108 mmol/L (98-107)
[2020-09-13 06:12] LABS: CREATININE 0.38 mg/dL (0.55-1.02)
[2020-09-13 06:51] VITALS: BP 108/60
[2020-09-13] MEDS: methylPREDNISolone SOD SUCC 40 MG/ML IV SCH ×2 (09:22→20:18)
[2020-09-13] MEDS: INSULIN REGULAR MEDIUM DOSE QDAY SQ-INSULIN SCH (11:33)
[2020-09-13] MEDS: D5%-0.45% NACL 1,000 ML IV SCH (12:42)
[2020-09-13 14:49] VITALS: BP 128/68
[2020-09-13] MEDS ORDERED: DEXTROSE 70% IV SCH (17:00)
[2020-09-13] MEDS ORDERED: FAT EMUL IV SCH (17:00)
[2020-09-13] MEDS ORDERED: SMOF TPN IV SCH (17:00)
[2020-09-13] MEDS ORDERED: FILTER, DISP 1.2 MICRON FOR TPN/PVN IV PRN (17:00)
[2020-09-13] MEDS ORDERED: AMINO ACID 10% IV SCH (17:00)
[2020-09-13] MEDS ORDERED: [UNRECOGNIZED DRUG - OTHER] IV SCH (17:00)
[2020-09-13 18:40] VITALS: BP 129/70
[2020-09-13] MEDS: MELATONIN 5 MG TABLET PO PRN (20:18)
[2020-09-13] MEDS: NICOTINE 21 MG/24 HR PATCH.TD24 TD SCH (20:39)
[2020-09-14 02:28] VITALS: BP 127/69
[2020-09-14] MEDS ORDERED: CATHFLO-ALTEPLASE 2 MG/2 ML CATHFLUSH ONE (04:30)
[2020-09-14 06:19] LABS: ANION GAP 6 mmol/L (5-15); CALCIUM 8.2 mg/dL (8.5-10.1); CHLORIDE 109 mmol/L (98-107); CREATININE 0.29 mg/dL (0.55-1.02)
[2020-09-14] MEDS: SUCRALFATE 1 GM TABLET PO SCH ×4 (07:13→20:41)
[2020-09-14 07:30] VITALS: BP 132/70
[2020-09-14] MEDS: HYDROmorphone 2 MG/ML, 1ML IVPush PRN ×3 (08:06→18:24)
[2020-09-14] MEDS: INSULIN REGULAR MEDIUM DOSE QDAY SQ-INSULIN SCH (09:00)
[2020-09-14] MEDS: methylPREDNISolone SOD SUCC 40 MG/ML IV SCH ×2 (09:04→20:41)
[2020-09-14] MEDS: OXYcodone/APAP 5/325MG TABLET PO PRN ×3 (10:39→20:45)
[2020-09-14] MEDS: D5%-0.45% NACL 1,000 ML IV SCH (10:44)
[2020-09-14 12:38] VITALS: BP 133/76
[2020-09-14] MEDS ORDERED: FAT EMUL IV SCH (17:00)
[2020-09-14] MEDS ORDERED: [UNRECOGNIZED DRUG - OTHER] IV SCH (17:00)
[2020-09-14] MEDS ORDERED: AMINO ACID 10% IV SCH (17:00)
[2020-09-14] MEDS ORDERED: SMOF TPN IV SCH (17:00)
[2020-09-14] MEDS ORDERED: DEXTROSE 70% IV SCH (17:00)
[2020-09-14] MEDS ORDERED: FILTER, DISP 1.2 MICRON FOR TPN/PVN IV PRN (17:00)
[2020-09-14 19:46] VITALS: BP 178/83
[2020-09-14] MEDS: NICOTINE 21 MG/24 HR PATCH.TD24 TD SCH (21:15)
[2020-09-14 21:19] VITALS: BP 153/79
[2020-09-15 02:41] VITALS: BP 153/80
[2020-09-15] MEDS: HYDROmorphone 2 MG/ML, 1ML IVPush PRN ×4 (03:50→23:59)
[2020-09-15 05:02] LABS: ANION GAP 5 mmol/L (5-15); CALCIUM 8.1 mg/dL (8.5-10.1); CHLORIDE 108 mmol/L (98-107); CREATININE 0.34 mg/dL (0.55-1.02)
[2020-09-15] MEDS: OXYcodone/APAP 5/325MG TABLET PO PRN ×4 (06:36→20:22)
[2020-09-15 07:12] VITALS: BP 128/69
[2020-09-15] MEDS: INSULIN REGULAR MEDIUM DOSE QDAY SQ-INSULIN SCH (07:48)
[2020-09-15] MEDS: methylPREDNISolone SOD SUCC 40 MG/ML IV SCH ×2 (07:48→20:22)
[2020-09-15] MEDS: SUCRALFATE 1 GM TABLET PO SCH ×4 (07:48→20:22)
[2020-09-15 13:29] VITALS: BP 153/71
[2020-09-15] MEDS: FILTER, DISP 1.2 MICRON FOR TPN/PVN IV PRN (16:55)
[2020-09-15] MEDS ORDERED: SMOF TPN IV SCH (17:00)
[2020-09-15] MEDS ORDERED: FAT EMUL IV SCH (17:00)
[2020-09-15] MEDS ORDERED: DEXTROSE 70% IV SCH (17:00)
[2020-09-15] MEDS ORDERED: AMINO ACID 10% IV SCH (17:00)
[2020-09-15] MEDS ORDERED: [UNRECOGNIZED DRUG - OTHER] IV SCH (17:00)
[2020-09-15 20:12] VITALS: BP 176/66
[2020-09-15 21:33] VITALS: BP_SYST 149; BP_SYST 151; BP_DIAS 73; BP_DIAS 76
[2020-09-15] MEDS: NICOTINE 21 MG/24 HR PATCH.TD24 TD SCH (21:39)
[2020-09-16 01:35] VITALS: BP 115/71
[2020-09-16] MEDS: OXYcodone/APAP 5/325MG TABLET PO PRN ×4 (03:08→18:53)
[2020-09-16] MEDS: HYDROmorphone 2 MG/ML, 1ML IVPush PRN ×5 (05:16→21:35)
[2020-09-16 05:31] LABS: ANION GAP 2 mmol/L (5-15); CALCIUM 8.1 mg/dL (8.5-10.1); CHLORIDE 106 mmol/L (98-107)
[2020-09-16 05:33] LABS: CREATININE 0.32 mg/dL (0.55-1.02)
[2020-09-16] MEDS: INSULIN REGULAR MEDIUM DOSE QDAY SQ-INSULIN SCH (07:14)
[2020-09-16] MEDS: SUCRALFATE 1 GM TABLET PO SCH ×4 (07:22→21:35)
[2020-09-16 07:24] VITALS: BP 138/76
[2020-09-16] MEDS: methylPREDNISolone SOD SUCC 40 MG/ML IV SCH ×2 (07:24→21:35)
[2020-09-16 12:13] VITALS: BP 128/73
[2020-09-16] MEDS ORDERED: FAT EMUL IV SCH (18:00)
[2020-09-16] MEDS ORDERED: SMOF TPN IV SCH (18:00)
[2020-09-16] MEDS ORDERED: AMINO ACID 10% IV SCH (18:00)
[2020-09-16] MEDS ORDERED: [UNRECOGNIZED DRUG - OTHER] IV SCH (18:00)
[2020-09-16] MEDS ORDERED: DEXTROSE 70% IV SCH (18:00)
[2020-09-16] MEDS: FILTER, DISP 1.2 MICRON FOR TPN/PVN IV PRN (18:04)
[2020-09-16 19:12] VITALS: BP 146/66
[2020-09-16] MEDS: NICOTINE 21 MG/24 HR PATCH.TD24 TD SCH (21:35)
[2020-09-17 01:05] VITALS: BP 104/57
[2020-09-17] MEDS: HYDROmorphone 2 MG/ML, 1ML IVPush PRN ×6 (02:41→23:28)
[2020-09-17] MEDS: OXYcodone/APAP 5/325MG TABLET PO PRN ×3 (04:13→13:47)
[2020-09-17 06:51] LABS: ANION GAP 5 mmol/L (5-15); CHLORIDE 106 mmol/L (98-107); CREATININE 0.36 mg/dL (0.55-1.02)
[2020-09-17] MEDS: SUCRALFATE 1 GM TABLET PO SCH ×4 (07:10→20:14)
[2020-09-17] MEDS: methylPREDNISolone SOD SUCC 40 MG/ML IV SCH ×2 (07:10→20:15)
[2020-09-17] MEDS: INSULIN REGULAR MEDIUM DOSE QDAY SQ-INSULIN SCH (07:23)
[2020-09-17 07:26] VITALS: BP 135/84
[2020-09-17 12:44] VITALS: BP 111/63
[2020-09-17] MEDS ORDERED: AMINO ACID 10% IV SCH (18:00)
[2020-09-17] MEDS ORDERED: FAT EMUL IV SCH (18:00)
[2020-09-17] MEDS ORDERED: DEXTROSE 70% IV SCH (18:00)
[2020-09-17] MEDS ORDERED: SMOF TPN IV SCH (18:00)
[2020-09-17] MEDS ORDERED: [UNRECOGNIZED DRUG - OTHER] IV SCH (18:00)
[2020-09-17] MEDS: FILTER, DISP 1.2 MICRON FOR TPN/PVN IV PRN (18:15)
[2020-09-17] MEDS: NICOTINE 21 MG/24 HR PATCH.TD24 TD SCH (20:15)
[2020-09-17 20:45] VITALS: BP 157/78
[2020-09-18 01:45] VITALS: BP 159/82
[2020-09-18] MEDS: HYDROmorphone 2 MG/ML, 1ML IVPush PRN ×6 (03:37→23:42)
[2020-09-18 06:06] LABS: ANION GAP 3 mmol/L (5-15); CALCIUM 8.7 mg/dL (8.5-10.1); CHLORIDE 107 mmol/L (98-107); CREATININE 0.35 mg/dL (0.55-1.02)
[2020-09-18 06:09] LABS: PREALBUMIN 28.1 mg/dL (20.0-40.0)
[2020-09-18 06:47] VITALS: BP 161/83
[2020-09-18] MEDS: SUCRALFATE 1 GM TABLET PO SCH ×4 (07:11→20:21)
[2020-09-18] MEDS: methylPREDNISolone SOD SUCC 40 MG/ML IV SCH ×2 (07:12→20:22)
[2020-09-18] MEDS: OXYcodone/APAP 5/325MG TABLET PO PRN ×3 (08:55→18:42)
[2020-09-18] MEDS: INSULIN REGULAR MEDIUM DOSE QDAY SQ-INSULIN SCH (08:58)
[2020-09-18] MEDS ORDERED: AMINO ACID 10% IV SCH ×2 (11:07→17:00)
[2020-09-18] MEDS ORDERED: [UNRECOGNIZED DRUG - OTHER] IV SCH ×2 (11:07→17:00)
[2020-09-18] MEDS ORDERED: FAT EMUL IV SCH ×2 (11:07→17:00)
[2020-09-18] MEDS ORDERED: SMOF TPN IV SCH ×2 (11:07→17:00)
[2020-09-18] MEDS ORDERED: DEXTROSE 70% IV SCH ×2 (11:07→17:00)
[2020-09-18 13:04] VITALS: BP 112/66
[2020-09-18] MEDS: FILTER, DISP 1.2 MICRON FOR TPN/PVN IV PRN (17:53)
[2020-09-18 19:54] VITALS: BP 130/81
[2020-09-18] MEDS: NICOTINE 21 MG/24 HR PATCH.TD24 TD SCH (20:22)
[2020-09-19 02:14] VITALS: BP 110/66
[2020-09-19] MEDS: HYDROmorphone 2 MG/ML, 1ML IVPush PRN ×4 (03:28→22:12)
[2020-09-19 05:43] LABS: CHLORIDE 101 mmol/L (98-107)
[2020-09-19 05:50] LABS: ANION GAP 4 mmol/L (5-15); CALCIUM 7.8 mg/dL (8.5-10.1); CREATININE 0.35 mg/dL (0.55-1.02)
[2020-09-19 06:55] VITALS: BP 126/77
[2020-09-19] MEDS: INSULIN REGULAR MEDIUM DOSE QDAY SQ-INSULIN SCH (07:32)
[2020-09-19] MEDS: SUCRALFATE 1 GM TABLET PO SCH ×4 (07:46→20:42)
[2020-09-19] MEDS: methylPREDNISolone SOD SUCC 40 MG/ML IV SCH ×2 (07:46→20:42)
[2020-09-19] MEDS: OXYcodone/APAP 5/325MG TABLET PO PRN ×2 (07:47→11:58)
[2020-09-19 12:12] VITALS: BP 109/69
[2020-09-19] MEDS ORDERED: OXYC1TAB14 PO ×2 (14:17→14:24)
[2020-09-19] MEDS ORDERED: METH4TAB PO (14:24)
[2020-09-19] MEDS ORDERED: SUCR1TAB33 PO (14:24)
[2020-09-19] MEDS ORDERED: HYDROmorphone 1 MG/ML, 1ML INJ IV ONE (16:00)
[2020-09-19] MEDS ORDERED: [UNRECOGNIZED DRUG - OTHER] IV SCH (17:00)
[2020-09-19] MEDS ORDERED: AMINO ACID 10% IV SCH (17:00)
[2020-09-19] MEDS ORDERED: SMOF TPN IV SCH (17:00)
[2020-09-19] MEDS ORDERED: DEXTROSE 70% IV SCH (17:00)
[2020-09-19] MEDS ORDERED: FAT EMUL IV SCH (17:00)
[2020-09-19] MEDS: FILTER, DISP 1.2 MICRON FOR TPN/PVN IV PRN (17:50)
[2020-09-19 18:40] VITALS: BP 125/70
[2020-09-19] MEDS: NICOTINE 21 MG/24 HR PATCH.TD24 TD SCH (20:42)
[2020-09-20 01:08] VITALS: BP 127/69
[2020-09-20] MEDS: HYDROmorphone 2 MG/ML, 1ML IVPush PRN ×3 (01:29→12:33)
[2020-09-20 05:40] LABS: ANION GAP 6 mmol/L (5-15); CALCIUM 8.4 mg/dL (8.5-10.1); CHLORIDE 103 mmol/L (98-107); CREATININE 0.34 mg/dL (0.55-1.02); TRIGLYCERIDES 104 mg/dL (50-200)
[2020-09-20 06:54] VITALS: BP 124/72
[2020-09-20] MEDS: SUCRALFATE 1 GM TABLET PO SCH ×3 (07:24→15:28)
[2020-09-20] MEDS: OXYcodone/APAP 5/325MG TABLET PO PRN ×2 (07:34→15:30)
[2020-09-20] MEDS: INSULIN REGULAR MEDIUM DOSE QDAY SQ-INSULIN SCH (07:36)
[2020-09-20] MEDS: methylPREDNISolone SOD SUCC 40 MG/ML IV SCH (09:31)
[2020-09-20 13:31] VITALS: BP 120/71
[2020-09-20] MEDS ORDERED: [UNRECOGNIZED DRUG - OTHER] IV SCH ×2 (17:00)
[2020-09-20] MEDS ORDERED: SMOF TPN IV SCH ×2 (17:00)
[2020-09-20] MEDS ORDERED: DEXTROSE 70% IV SCH ×2 (17:00)
[2020-09-20] MEDS ORDERED: AMINO ACID 10% IV SCH ×2 (17:00)
[2020-09-20] MEDS ORDERED: FAT EMUL IV SCH ×2 (17:00)
== END 2020-09-20 16:59 | disposition home health service (06) | DRG 385 ==
LOC: ED 10:57 → 3N 13:17
PROVIDERS: ADMIT Hospitalist; ATTEND Internal Medicine
PROC: 0DB68ZX Excision of Stomach, Via Natural or Artificial Opening Endoscopic, Diagnostic (ICD-10-PCS; 2020-08-29)
PROC: 0DBA8ZX Excision of Jejunum, Via Natural or Artificial Opening Endoscopic, Diagnostic (ICD-10-PCS; 2020-08-29)
PROC: 0DB98ZX Excision of Duodenum, Via Natural or Artificial Opening Endoscopic, Diagnostic (ICD-10-PCS; principal; 2020-08-29 14:00)
PROC: 02HV33Z Insertion of Infusion Device into Superior Vena Cava, Percutaneous Approach (ICD-10-PCS; 2020-08-30)
PROC: B5181ZA Fluoroscopy of Superior Vena Cava using Low Osmolar Contrast, Guidance (ICD-10-PCS; 2020-08-30)
PROC: B548ZZA Ultrasonography of Superior Vena Cava, Guidance (ICD-10-PCS; 2020-08-30)
DX: K50.812 Crohn's disease of both small and large intestine with intestinal obstruction (principal); E43 Unspecified severe protein-calorie malnutrition; F11.20 Opioid dependence, uncomplicated; K56.690 Other partial intestinal obstruction; Z68.1 Body mass index [BMI] 19.9 or less, adult; Z20.822 Contact with and (suspected) exposure to COVID-19; E87.6 Hypokalemia; D64.9 Anemia, unspecified; E83.42 Hypomagnesemia; F17.210 Nicotine dependence, cigarettes, uncomplicated; G89.29 Other chronic pain; I10 Essential (primary) hypertension; K29.70 Gastritis, unspecified, without bleeding; N30.90 Cystitis, unspecified without hematuria; R62.7 Adult failure to thrive; Z82.49 Family history of ischemic heart disease and other diseases of the circulatory system
CPT/HCPCS: 36415; 36573; 70450; 74174; 74178; 78264; 80048; 80053; 81001; 81003; 82784; 82962; 83516; 83605; 83690; 83735; 83993; 84100; 84134; 84439; 84443; 84478; 85025; 85651; 86140; 86316; 86480; 86704; 87040; 87086; 87340; 87635; 88305; 96361; 96374; G0378; J0610; J0690; J0696; J1170; J1815; J2405; J2704; J2710; J2997; J3010; J3475; J3480; Q9967; A9541; C1751; C9113; C9898; J0330; J1720; J2270; J2920; J3420; J7030; J7040